=== PATIENT | female | born 1935 | race Caucasian/White ===

== ENCOUNTER 2016-10-31 14:22 | Emergency (ER) | payer OTHER ==
[~2016-10-31] VITALS: Ht 160 cm; Wt 70.0 kg
[~2016-10-31 14:22] MED LIST: CHOL1CAP6 PO; OMEGCAP21 PO; ZOCO40TA PO
[2016-10-31 14:45] VITALS: BP 126/61; PULSE 78; RESP 18; TEMP 100.1; O2SAT 94
--- NOTE | 2016-10-31 14:49 | PD ---
HPI Chief Complaint: Dizziness Time Seen by Provider: 14:49 Travel History International Travel<30 days: No Contact w/Intl Traveler<30days: No Traveled to known affect area: No History of Present Illness HPI 81-year-old female brought in by EMS from home with reports of confusion and fever. Patient has a history of dementia, but her neighbors and roommate felt that she was worse than usual. Patient denies any specific complaints of pain, fever, nausea, vomiting, cough, sore throat, headache, or other acute issue. Temperature is reported be 101 by EMS. She has no known drug allergies. PFSH Past Medical History Arthritis: Yes Cancer: Yes (RIGHT BREAST) Cardiovascular Problems: No High Cholesterol: Yes Chemotherapy: No Diabetes: Yes Diminished Hearing: No Gastrointestinal Disorders: Yes Genitourinary: No Implanted Vascular Access Dvce: Yes Musculoskeletal: Yes (POLIO AGE 14) Neurologic: No Respiratory: No Immunizations Current: Yes Radiation Therapy: No Thyroid Disease: Yes Past Surgical History Eye Surgery: Yes (CATARACT ON LEFT, LENS) Genitourinary Surgery: Yes (HYSTERECTOMY) Hysterectomy: Yes Other Surgery: Yes Social History Alcohol Use: Yes (SOCIALLY) Tobacco Use: No Substance Use: No Allergies-Medications (Allergen,Severity, Reaction): Coded Allergies: No Known Allergies (Verified , 12/16/15) Reported Meds & Prescriptions Reported Meds & Active Scripts Active Reported Zocor 40 mg (Simvastatin) 40 Mg Tab 1 Tab PO HS Hm [place]-3-6-9 Fatty Acid ([place]-3/[place]-6/[place]-9 Fatty Acids) Cap 1 Cap PO DAILY Vitamin D-3 (Cholecalciferol) 1,000 Unit Tab 2,000 Unit PO DAILY Review of Systems Except as stated in HPI: all other systems reviewed are Neg General / Constitutional: Positive: Fever, Chills Eyes: No: Visual changes HENT: No: Headaches, Vertigo, Lightheadedness, Sore Throat, Rhinitis, Rhinorrhea, Congestion, Nosebleed, Neck Stiffness, Neck Pain, Dental Difficulties, Earache Cardiovascular: No: Chest Pain or Discomfort Respiratory: No: Cough, Shortness of Breath, Wheezing Gastrointestinal: No: Nausea, Vomiting, Diarrhea, Abdominal Pain Genitourinary: No: Urgency, Frequency, Dysuria Musculoskeletal: No: Pain Skin: No Rash Neurologic: No: Weakness Psychiatric: No: Depression Endocrine: No: Polydipsia Hematologic/Lymphatic: No: Easy Bruising Physical Exam Narrative GENERAL: Patient appears comfortable and in no acute distress. She is examined in the ambulance [facility]. SKIN: Warm and dry. Normal color. Normal turgor. HEAD: Atraumatic. Normocephalic. EYES: Pupils equal and round. No scleral icterus. No injection or drainage. ENT: No nasal bleeding or discharge. Mucous membranes pink and moist. TMs are clear bilaterally. Pharynx is normal. Airway is patent. NECK: Trachea midline. No JVD. Neck is supple nontender. CARDIOVASCULAR: Regular rate and rhythm. No murmurs gallops or rubs. RESPIRATORY: No accessory muscle use. Clear to auscultation. Breath sounds equal bilaterally. GASTROINTESTINAL: Abdomen soft, non-tender, nondistended. Hepatic and splenic margins not palpable. MUSCULOSKELETAL: Extremities without clubbing, cyanosis, or edema. No obvious deformities. NEUROLOGICAL: Awake and alert. No obvious cranial nerve deficits. Motor grossly within normal limits. Five out of 5 muscle strength in the arms and legs. Normal speech. PSYCHIATRIC: Appropriate mood and affect; insight and judgment normal. Data Data Last Documented VS Vital Signs Date Time Temp Pulse Resp B/P Pulse Ox O2 Delivery O2 Flow Rate FiO2 10/31/16 14:45 100.1 78 18 126/61 94 Orders Electrocardiogram (10/31/16 14:49) Complete Blood Count With Diff (10/31/16 14:49) Comprehensive Metabolic Panel (10/31/16 14:49) Prothrombin Time / Inr (Pt) (10/31/16 14:49) Act Partial Throm Time (Ptt) (10/31/16 14:49) Lactic Acid Sepsis Protocol (10/31/16 14:49) Magnesium (Mg) (10/31/16 14:49) Lipase (10/31/16 14:49) Ckmb (Isoenzyme) Profile (10/31/16 14:49) Troponin I (10/31/16 14:49) Urinalysis - C+S If Indicated (10/31/16 14:49) Blood Culture (10/31/16 14:49) Chest, Single Ap (10/31/16 14:49) Ecg Monitoring (10/31/16 14:49) Iv Access Insert/Monitor (10/31/16 14:49) Cath For Specimen (10/31/16 14:49) Oximetry (10/31/16 14:49) Oxygen Administration (10/31/16 14:49) Acetaminophen (Tylenol) (10/31/16 15:00) Labs Laboratory Tests Test 10/31/16 10/31/16 14:50 15:00 White Blood Count 4.6 TH/MM3 Red Blood Count 4.60 MIL/MM3 Hemoglobin 14.1 GM/DL Hematocrit 41.6 % Mean Corpuscular Volume 90.5 FL Mean Corpuscular Hemoglobin 30.5 PG Mean Corpuscular Hemoglobin 33.8 % Concent Red Cell Distribution Width 14.6 % Platelet Count 202 TH/MM3 Mean Platelet Volume 8.7 FL Neutrophils (%) (Auto) 74.6 % Lymphocytes (%) (Auto) 11.3 % Monocytes (%) (Auto) 12.5 % Eosinophils (%) (Auto) 1.1 % Basophils (%) (Auto) 0.5 % Neutrophils # (Auto) 3.4 TH/MM3 Lymphocytes # (Auto) 0.5 TH/MM3 Monocytes # (Auto) 0.6 TH/MM3 Eosinophils # (Auto) 0.1 TH/MM3 Basophils # (Auto) 0.0 TH/MM3 CBC Comment DIFF FINAL Differential Comment Prothrombin Time 10.7 SEC Prothromb Time International 1.0 RATIO Ratio Activated Partial 25.4 SEC Thromboplast Time Lactic Acid Level 1.3 mmol/L Urine Color YELLOW Urine Turbidity CLEAR Urine pH 7.0 Urine Specific [place] 1.017 Urine Protein TRACE mg/dL Urine Glucose (UA) 300 mg/dL Urine Ketones TRACE mg/dL Urine Occult Blood NEG Urine Nitrite NEG Urine Bilirubin NEG Urine Urobilinogen LESS THAN 2.0 MG/DL Urine Leukocyte Esterase NEG Urine RBC 1 /hpf Urine WBC 2 /hpf Urine Squamous Epithelial 2 /hpf Cells Urine Renal Epithelial Cells <1 /hpf Microscopic Urinalysis Comment CATH-CULT NOT IND MDM Medical Decision Making Medical Screen Exam Complete: Yes Emergency Medical Condition: Yes Medical Record Reviewed: Yes Differential Diagnosis Febrile illness. Urosepsis. Bronchitis. Pneumonia. Narrative Course Patient is medically stable at time of exam. Labs ordered including CBC, CMP, lactic acid, and urinalysis. CBC is unremarkable. Lactic acid is normal at 1.4. Chest x-ray is unremarkable per radiologist. Urinalysis does not show signs of infection. Patient is given 650 mg Tylenol by mouth. Patient is felt stable although she does have a fever, her labs indicate no reason to admit her. Patient should be discharged home and continued on Tylenol as needed for fever and follow-up with her primary care physician the next several days. The patient should return to emergency Department with worsening symptoms as warranted. Diagnosis Primary Impression: Febrile illness, acute Referrals: Primary Care Physician 1 day Patient Instructions: General Instructions Additional Instructions: CBC is unremarkable. Lactic acid is normal at 1.4. Chest x-ray is unremarkable per radiologist. Urinalysis does not show signs of infection. Patient is given 650 mg Tylenol by mouth. Patient is felt stable although she does have a fever, her labs indicate no reason to admit her. Patient should be discharged home and continued on Tylenol as needed for fever and follow-up with her primary care physician the next several days. The patient should return to emergency Department with worsening symptoms as warranted. Med/Other Pt SpecificInfo: No Meds Exist/No RX given Disposition: DISCHARGE HOME Condition: Stable Pramod Fowler Oct 31, 2016 14:49
[2016-10-31] MEDS ORDERED: ACETAMINOPHEN 325 MG TAB PO ONE (15:00)
[2016-10-31 15:22] LABS: AUTOMATED NEUTROPHIL # 3.4 TH/MM3 (1.8-7.7); BASOPHIL % 0.5 % (0.0-2.0); EOSINOPHIL # 0.1 TH/MM3 (0-0.4); EOSINOPHIL % 1.1 % (0.0-4.0); HEMATOCRIT 41.6 % (35.0-46.0); HEMO FLAGS DIFF FINAL; LYMPH % 11.3 % (9.0-44.0); LYMPHOCYTE # 0.5 TH/MM3 (1.0-4.8); MEAN CELL VOLUME 90.5 FL (80.0-100.0); MEAN CORPUSCULAR HEMOGLOBIN 30.5 PG (27.0-34.0); MEAN CORPUSCULAR HGB CONC 33.8 % (32.0-36.0); MONO % 12.5 % (0.0-8.0); NEUT % 74.6 % (16.0-70.0); PLATELET COUNT 202 TH/MM3 (150-450); RED CELL DISTRIBUTION WIDTH 14.6 % (11.6-17.2); WHITE BLOOD COUNT 4.6 TH/MM3 (4.0-11.0)
[2016-10-31 15:29] LABS: APTT (PATIENT) 25.4 SEC (24.3-30.1); PROTHROMBIN TIME - PATIENT 10.7 SEC (9.8-11.6)
--- NOTE | 2016-10-31 15:38 | RADRPT ---
EXAM DATE/TIME: 10/31/2016 15:09 [facility] COMPARISON: CHEST SINGLE AP, August 24, 2014, 13:54. INDICATIONS : Fever, dizzy MEDICAL HISTORY : None. SURGICAL HISTORY : None. ENCOUNTER: Initial ACUITY: 1 day PAIN SCORE: 0/10 LOCATION: Bilateral chest FINDINGS: A single view of the chest demonstrates without evidence of significant consolidation. Lungs are hyperinflated. Heart and mediastinal structures are stable. CONCLUSION: COPD. Minimal streaky airspace disease left base which may represent atelectasis. No evidence of consolidating airspace disease. Hans Mitchell MD on October 31, 2016 at 15:35 Board Certified Radiologist. This report was verified electronically.
[2016-10-31 15:52] LABS: BLOOD, URINE NEG (NEG); COMMENT (UR) CATH-CULT NOT IND; CULTURE IF INDICATED CATH CULTURE NOT IND; GLUCOSE,URINE 300 mg/dL (NEG); KETONE, URINE TRACE mg/dL (NEG); NITRITE,URINE NEG (NEG); RENAL EPITHELIAL CELLS <1 /hpf; SQUAMOUS EPITHELIAL CELL URINE 2 /hpf (0-5); URINE COLOR YELLOW (YELLW/STRAW)
== END 2016-10-31 17:26 | disposition home or self-care (01) ==
LOC: NEDAMB 14:22
DX: R50.9 Fever, unspecified (principal); E11.9 Type 2 diabetes mellitus without complications
CPT/HCPCS: 71010; 81001; 83605; 85025; 85610; 85730; 87040; 99285

== ENCOUNTER 2017-05-26 14:50 | Emergency (ER) | payer OTHER ==
[~2017-05-26] VITALS: Ht 149.9 cm; Wt 55.0 kg
[2017-05-26 14:52] VITALS: BP 150/67; PULSE 92; RESP 14; TEMP 98.8; O2SAT 95
[2017-05-26 15:59] VITALS: BP 174/70; PULSE 81; RESP 18; O2SAT 97
--- NOTE | 2017-05-26 16:01 | PD ---
HPI Chief Complaint: GI Complaint Time Seen by Provider: 15:36 Travel History International Travel<30 days: No Contact w/Intl Traveler<30days: No Traveled to known affect area: No History of Present Illness HPI 81-year-old female presents to the emergency department for evaluation of finding a small amount of pink in her underwear and states that she had a episode of rectal bleeding. Patient states it was a very small amount in her underwear and she has not had any since. She had this episode this morning. She denies any history of the same. Patient is a poor historian. Her at bedside is as well a poor historian. Patient denies any headache. No fevers or chills. No chest pain or shortness of breath. She denies any bleeding since this. When asked if this could've been vaginal bleeding, she states she is sure it was rectal. Patient is unsure she is ever had a colonoscopy. She denies any abdominal pain. No nausea, vomiting, diarrhea, constipation. She states her last BM was yesterday was normal. She denies any weakness, dizziness, syncope. She states she feels fine at this time. Patient takes aspirin, but no anticoagulants. She has no other complaints at this time. Severity is mild. PFSH Past Medical History Arthritis: Yes Cancer: Yes (RIGHT BREAST) Cardiovascular Problems: No High Cholesterol: Yes Chemotherapy: No Diabetes: Yes Diminished Hearing: No Gastrointestinal Disorders: Yes Genitourinary: No Implanted Vascular Access Dvce: Yes Musculoskeletal: Yes (POLIO AGE 14) Neurologic: No Respiratory: No Immunizations Current: Yes Radiation Therapy: No Thyroid Disease: Yes Past Surgical History Eye Surgery: Yes (CATARACT ON LEFT, LENS) Genitourinary Surgery: Yes (HYSTERECTOMY) Hysterectomy: Yes Other Surgery: Yes Social History Alcohol Use: Yes (SOCIALLY) Tobacco Use: No Substance Use: No Allergies-Medications (Allergen,Severity, Reaction): Coded Allergies: No Known Allergies (Verified , 12/16/15) Reported Meds & Prescriptions Reported Meds & Active Scripts Active Reported Meclizine (Meclizine HCl) 25 Mg Tab 25 Mg PO DIRECTED PRN Aspirin EC (Aspirin) 81 Mg Tabdr 81 Mg PO DAILY Glipizide 5 Mg Tab 2.5 Mg PO BIDAC Take 30 minutes before a meal Amlodipine (Amlodipine Besylate) 2.5 Mg Tab 2.5 Mg PO BID Review of Systems Except as stated in HPI: all other systems reviewed are Neg Physical Exam Narrative GENERAL: Well-nourished, well-developed female patient, afebrile. SKIN: Focused skin assessment warm/dry. HEAD: Normocephalic. Atraumatic. EYES: No scleral icterus. No injection or drainage. NECK: Supple, trachea midline. No JVD or lymphadenopathy. CARDIOVASCULAR: Regular rate and rhythm without murmurs, gallops, or rubs. RESPIRATORY: Breath sounds equal bilaterally. No accessory muscle use. Lungs sounds are clear to auscultation. GASTROINTESTINAL: Abdomen soft, non-tender, nondistended. MUSCULOSKELETAL: No cyanosis, or edema. BACK: Nontender without obvious deformity. No CVA tenderness. RECTAL EXAM: No masses or tenderness. No stool within the rectal vault. Mucus obtained was negative for occult blood. This exam was done with MAIDA Fitzgerald, at bedside. Data Data Last Documented VS Vital Signs Date Time Temp Pulse Resp B/P (MAP) Pulse Ox O2 Delivery O2 Flow Rate FiO2 05/26/17 15:59 81 18 174/70 (104) 97 Room Air 05/26/17 14:52 98.8 Orders Orders Complete Blood Count With Diff (05/26/17 15:10) Comprehensive Metabolic Panel (05/26/17 15:10) Prothrombin Time / Inr (Pt) (05/26/17 15:10) Act Partial Throm Time (Ptt) (05/26/17 15:10) Urinalysis - C+S If Indicated (05/26/17 15:10) Type And Screen (05/26/17 15:10) Electrocardiogram (05/26/17 ) Urine Culture (05/26/17 16:15) Cephalexin (Keflex) (05/26/17 17:45) Labs Laboratory Tests Test 05/26/17 16:15 05/26/17 16:25 Urine Color YELLOW Urine Turbidity HAZY Urine pH 5.5 Urine Specific [place] 1.024 Urine Protein 30 mg/dL Urine Glucose (UA) 300 mg/dL Urine Ketones TRACE mg/dL Urine Occult Blood SMALL Urine Nitrite POS Urine Bilirubin NEG Urine Urobilinogen 2.0 MG/DL Urine Leukocyte Esterase LARGE Urine RBC 6 /hpf Urine WBC 101 /hpf Urine WBC Clumps OCC Urine Squamous Epithelial Cells 5 /hpf Urine Amorphous Sediment RARE Urine Bacteria MANY /hpf Urine Mucus MOD /lpf Microscopic Urinalysis Comment CULTURE INDICATED White Blood Count 9.1 TH/MM3 Red Blood Count 4.89 MIL/MM3 Hemoglobin 15.5 GM/DL Hematocrit 44.9 % Mean Corpuscular Volume 91.7 FL Mean Corpuscular Hemoglobin 31.7 PG Mean Corpuscular Hemoglobin Concent 34.6 % Red Cell Distribution Width 13.7 % Platelet Count 246 TH/MM3 Mean Platelet Volume 8.1 FL Neutrophils (%) (Auto) 75.3 % Lymphocytes (%) (Auto) 14.5 % Monocytes (%) (Auto) 9.0 % Eosinophils (%) (Auto) 0.7 % Basophils (%) (Auto) 0.5 % Neutrophils # (Auto) 6.8 TH/MM3 Lymphocytes # (Auto) 1.3 TH/MM3 Monocytes # (Auto) 0.8 TH/MM3 Eosinophils # (Auto) 0.1 TH/MM3 Basophils # (Auto) 0.0 TH/MM3 CBC Comment DIFF FINAL Differential Comment Prothrombin Time 10.5 SEC Prothromb Time International Ratio 1.0 RATIO Activated Partial Thromboplast Time 21.1 SEC Blood Urea Nitrogen 21 MG/DL Creatinine 1.03 MG/DL Random Glucose 152 MG/DL Total Protein 7.9 GM/DL Albumin 4.1 GM/DL Calcium Level 8.8 MG/DL Alkaline Phosphatase 74 U/L Aspartate Amino Transf (AST/SGOT) 20 U/L Alanine Aminotransferase (ALT/SGPT) 30 U/L Total Bilirubin 0.5 MG/DL Sodium Level 138 MEQ/L Potassium Level 3.7 MEQ/L Chloride Level 105 MEQ/L Carbon Dioxide Level 23.1 MEQ/L Anion Gap 10 MEQ/L Estimat Glomerular Filtration Rate 51 ML/MIN [facility] Medical Decision Making Medical Screen Exam Complete: Yes Emergency Medical Condition: Yes Medical Record Reviewed: Yes Differential Diagnosis Rectal bleeding versus vaginal bleeding versus anemia versus medical clearance Narrative Course 81-year-old female presents to the emergency department stating she had some pink in her underwear and is concerned she has rectal bleeding. She has had no further episodes. Rectal exam is negative. No evidence of vaginal bleeding on exam either. EKG, CBC, CMP, PTT, PT/INR, UA, type and screen are ordered and pending. EKG shows HR 82, LBBB, no acute ST changes. CBC shows HGB of 15.5/Hct of 44.9. CMP shows BUN 21/creatinine of 1.03, glucose 152. Coags show no acute abnormality. UA shows small occult blood, positive nitrate, large leukocyte esterase, 101 wbc's, occasional WBC clumps, many bacteria. There is no evidence of vaginal or rectal bleeding on physical exam. Patient does have significant UTI. Otherwise, labs are reassuring. Patient started on Keflex for UTI. She is instructed to follow with her primary care physician. She is to return here for any acute worsening of symptoms. The patient was discharged in stable condition with instructions, including return instructions and follow up instructions. [facility] Internal Pos. & Neg. Controls: Passed Fecal Specimen Occult Blood: Negative Diagnosis Primary Impression: Urinary tract infection Qualified Codes: N30.01 - Acute cystitis with hematuria Referrals: Primary Care Physician call for appointment Patient Instructions: General Instructions, Urinary Tract Infection in Women ( ED) Additional Instructions: Take antibiotic as directed until gone. Follow-up with your primary care physician. Return to the emergency department for any acute worsening of symptoms. Med/Other Pt SpecificInfo: Prescription(s) given Scripts Cephalexin (Keflex) 500 Mg Capsule 500 MG PO Q8H for Infection for 7 Days, #21 CAP 0 Refills Prov: Elsi Cuenca 05/26/17 Disposition: 01 DISCHARGE HOME Condition: Stable Elsi Cuenca May 26, 2017 16:01
[2017-05-26] MEDS ORDERED: AMLO2.5T PO (16:05)
[2017-05-26] MEDS ORDERED: MECL-62 PO (16:05)
[2017-05-26] MEDS ORDERED: GLIP5TAB8 PO (16:05)
[2017-05-26] MEDS ORDERED: ASPI81TA23 PO (16:05)
[2017-05-26 16:58] LABS: AUTOMATED NEUTROPHIL # 6.8 TH/MM3 (1.8-7.7); BASOPHIL % 0.5 % (0.0-2.0); EOSINOPHIL # 0.1 TH/MM3 (0-0.4); EOSINOPHIL % 0.7 % (0.0-4.0); HEMATOCRIT 44.9 % (35.0-46.0); HEMO FLAGS DIFF FINAL; LYMPH % 14.5 % (9.0-44.0); LYMPHOCYTE # 1.3 TH/MM3 (1.0-4.8); MEAN CELL VOLUME 91.7 FL (80.0-100.0); MEAN CORPUSCULAR HEMOGLOBIN 31.7 PG (27.0-34.0); MEAN CORPUSCULAR HGB CONC 34.6 % (32.0-36.0); NEUT % 75.3 % (16.0-70.0); PLATELET COUNT 246 TH/MM3 (150-450); RED BLOOD COUNT 4.89 MIL/MM3 (4.00-5.30); RED CELL DISTRIBUTION WIDTH 13.7 % (11.6-17.2); WHITE BLOOD COUNT 9.1 TH/MM3 (4.0-11.0)
[2017-05-26 17:07] LABS: ALT (GPT) 30 U/L (10-53); ANION GAP 10 MEQ/L (5-15); AST (GOT) 20 U/L (15-37); BICARBONATE 23.1 MEQ/L (21.0-32.0); BLOOD UREA NITROGEN 21 MG/DL (7-18); CHLORIDE 105 MEQ/L (98-107); GLOMERULAR FILTRATION RATE 51 ML/MIN (>89); POTASSIUM 3.7 MEQ/L (3.5-5.1); SODIUM (NA) 138 MEQ/L (136-145)
[2017-05-26 17:09] LABS: BACTERIA, URINE MANY /hpf; BLOOD, URINE SMALL (NEG); COMMENT (UR) CULTURE INDICATED; CULTURE IF INDICATED CULTURE INDICATED; GLUCOSE,URINE 300 mg/dL (NEG); KETONE, URINE TRACE mg/dL (NEG); MUCUS URINE MOD /lpf (OCC); NITRITE,URINE POS (NEG); PH, URINE 5.5 (5.0-8.5); SQUAMOUS EPITHELIAL CELL URINE 5 /hpf (0-5); URINE COLOR YELLOW (YELLW/STRAW)
[2017-05-26 17:09] LABS: ALKALINE PHOSPHATASE 74 U/L (45-117); TOTAL BILIRUBIN ADULT 0.5 MG/DL (0.2-1.0)
[2017-05-26 17:10] LABS: APTT (PATIENT) 21.1 SEC (24.3-30.1); PROTHROMBIN TIME - PATIENT 10.5 SEC (9.8-11.6)
[2017-05-26] MEDS ORDERED: CEPHALEXIN MONOHYDRATE 500 MG CAP PO ONE (17:45)
[2017-05-26] MEDS ORDERED: CEPH-460 PO (17:47)
--- NOTE | 2017-05-27 14:25 | EKG ---
Date Performed: 05/26/2017 Time Performed: 15:14:52 PTAGE: 81 years EKG: Sinus rhythm MARKED LEFT AXIS DEVIATION LEFT BUNDLE BRANCH BLOCK ABNORMAL ECG PREVIOUS TRACING : 12/16/2015 11.27 Compared to prior tracing no significant change DOCTOR: Olivier Saldana Interpretating Date/Time 05/27/2017 14:19:16
== END 2017-05-26 18:15 | disposition home or self-care (01) ==
LOC: NEPC 14:50
DX: N30.01 Acute cystitis with hematuria (principal); K62.5 Hemorrhage of anus and rectum; B96.1 Klebsiella pneumoniae [K. pneumoniae] as the cause of diseases classified elsewhere; R94.31 Abnormal electrocardiogram [ECG] [EKG]; E11.9 Type 2 diabetes mellitus without complications; E07.9 Disorder of thyroid, unspecified; E78.00 Pure hypercholesterolemia, unspecified; Z79.84 Long term (current) use of oral hypoglycemic drugs; Z79.82 Long term (current) use of aspirin; Z87.39 Personal history of other diseases of the musculoskeletal system and connective tissue; Z85.3 Personal history of malignant neoplasm of breast; Z87.19 Personal history of other diseases of the digestive system
CPT/HCPCS: 80053; 81001; 85025; 85610; 85730; 86850; 86900; 86901; 87077; 87086; 87186; 93005; 99284

== ENCOUNTER 2017-10-06 15:02 | Observation (INO) | payer OTHER ==
[~2017-10-06 15:02] MED LIST changes: +AMLO2.5T PO; +ASPI81TA23 PO; +CEPH-460 PO; -CHOL1CAP6 PO; +GLIP5TAB8 PO; +MECL-62 PO; -OMEGCAP21 PO; -ZOCO40TA PO
[2017-10-06 15:13] VITALS: BP 184/90; PULSE 87; RESP 16; TEMP 97.6; O2SAT 97
[2017-10-06 16:34] LABS: ALT (GPT) 28 U/L (10-53)
[2017-10-06 16:36] LABS: ALKALINE PHOSPHATASE 68 U/L (45-117); TOTAL BILIRUBIN ADULT 0.4 MG/DL (0.2-1.0); TOTAL PROTEIN 8.3 GM/DL (6.4-8.2)
[2017-10-06 16:37] LABS: ALBUMIN 4.4 GM/DL (3.4-5.0); AST (GOT) 25 U/L (15-37); BICARBONATE 27.4 MEQ/L (21.0-32.0); BLOOD UREA NITROGEN 17 MG/DL (7-18); CHLORIDE 107 MEQ/L (98-107); CREATININE 0.96 MG/DL (0.50-1.00); GLOMERULAR FILTRATION RATE 56 ML/MIN (>89); GLUCOSE,RANDOM 119 MG/DL (74-106); SODIUM (NA) 141 MEQ/L (136-145)
--- NOTE | 2017-10-06 16:45 | RADRPT ---
EXAM DATE/TIME: 10/06/2017 16:36 [facility] COMPARISON: No previous studies available for comparison. INDICATIONS : Weakness. RADIATION DOSE: 39.81 CTDIvol (mGy) ; Tabletop CT Head MEDICAL HISTORY : Diabetes mellitus type 2. SURGICAL HISTORY : None. ENCOUNTER: Initial ACUITY: 1 day PAIN SCALE: 0/10 LOCATION: cranial TECHNIQUE: Multiple contiguous axial images were obtained of the head. Using automated exposure control and adj ustment of the mA and/or kV according to patient size, radiation dose was kept as low as reasonably a chievable to obtain optimal diagnostic quality images. DICOM format image data is available electro nically for review and comparison. FINDINGS: CEREBRUM: The ventricles are normal for age with moderate atrophic change. No evidence of midline shift, mass l esion, hemorrhage or acute infarction. No extra-axial fluid collections are seen. POSTERIOR FOSSA: The cerebellum and brainstem are intact. The 4th ventricle is midline. The cerebellopontine angle i s unremarkable. EXTRACRANIAL: The visualized portion of the orbits is intact. SKULL: The calvaria is intact. No evidence of skull fracture. CONCLUSION: Moderate atrophic change with no evidence of hemorrhage or infarction. Simon Dinero MD on October 06, 2017 at 16:41 Board Certified Radiologist. This report was verified electronically.
--- NOTE | 2017-10-06 17:10 | RADRPT ---
EXAM DATE/TIME: 10/06/2017 16:39 [facility] COMPARISON: No previous studies available for comparison. INDICATIONS : Radiculopathy. Left lower extremity numbness since yesterday. RADIATION DOSE: 33.37 CTDIvol (mGy) MEDICAL HISTORY : Diabetes mellitus type 2. SURGICAL HISTORY : None. ENCOUNTER: Initial ACUITY: 1 day PAIN SCALE: 3/10 LOCATION: Lumbar spine. TECHNIQUE: Volumetric scanning of the lumbar spine was performed. Multiplanar reconstructions in the sagittal, coronal and oblique axial planes were performed. Using automated exposure control and adjustment of the mA and/or kV according to patient size, radiation dose was kept as low as reasonably achievable t o obtain optimal diagnostic quality images. DICOM format image data is available electronically for review and comparison. FINDINGS: VERTEBRAE: Normal vertebral body height. ALIGNMENT: There is a minimal grade 1 anterior spondylolisthesis of L4 on L5 several millimeters. Discs: There is mild disc space narrowing at the L3-4 level. T12-L1: The thecal sac has a normal diameter. No evidence of disc bulge or protrusion. The neural foramina are patent bilaterally. There is a benign-appearing cystic structure in the left kidney. L1-L2: The thecal sac has a normal diameter. There is mild annular disc bulge. The neural foramina are paten t bilaterally. L2-L3: The thecal sac has a normal diameter. There is mild annular disc bulge. The neural foramina are paten t bilaterally. L3-L4: There is a mild to moderate disc bulge with mild flattening of the anterior thecal sac and mild narro wing of the neural foramina. Degenerative changes are noted involving the facet joints with hypertrop hy of the ligamentum flavum and mild to moderate central canal stenosis. L4-L5: Moderate disc bulge with mild flattening of the anterior thecal sac and mild narrowing of the neural foramina. Degenerative changes are noted involving the facet joints with hypertrophy of the ligamentu m flavum. There is mild lateral recess stenosis and moderate central canal stenosis. L5-S1: The thecal sac has a normal diameter. There is a mild disc bulge. The neural foramina are patent bila terally. CONCLUSION: 1. Moderate central canal stenosis and lateral recess stenosis at L4-5 secondary to disc bulge and de generative change involving the facets. 2. Mild to moderate central canal stenosis at L3-4 secondary to disc bulge and degenerative change in volving the facets. 3. Mild disc bulges at the L1-2, L2-3 and L5-S1 levels. 4. Mild grade 1 anterior spondylolisthesis of L4 on L5 several millimeters. Simon Dinero MD on October 06, 2017 at 17:03 Board Certified Radiologist. This report was verified electronically.
--- NOTE | 2017-10-06 17:58 | PD ---
HPI Chief Complaint: Numbness/Tingling Time Seen by Provider: 17:34 Travel History International Travel<30 days: No Contact w/Intl Traveler<30days: No Traveled to known affect area: No History of Present Illness HPI The patient is 82 years old and complains of left lower extremity pain and numbness. She reports inability to elevate the leg and to walk. The pain is most severe in the region of the posterior thigh. She also has pain in the left knee. She denies fall. There has been no excessive use or injury due to exercise. Timing constant. Patient states the pain is severe. PFSH Past Medical History Diabetes: Yes Social History Tobacco Use: No Allergies-Medications (Allergen,Severity, Reaction): Coded Allergies: No Known Allergies (Unverified , 10/06/17) Review of Systems Except as stated in HPI: all other systems reviewed are Neg General / Constitutional: No: Fever Physical Exam Narrative GENERAL: 82-year-old female pleasant well-nourished well-developed Vital Signs Date Time Temp Pulse Resp B/P (MAP) Pulse Ox O2 Delivery O2 Flow Rate FiO2 10/06/17 20:00 98.0 88 20 165/60 (95) 98 Room Air 10/06/17 18:01 97 Room Air 10/06/17 15:13 97.6 87 16 184/90 (121) 97 SKIN: Warm and dry. HEAD: Atraumatic. Normocephalic. EYES: Pupils equal and round. No scleral icterus. No injection or drainage. ENT: No nasal bleeding or discharge. Mucous membranes pink and moist. NECK: Trachea midline. No JVD. CARDIOVASCULAR: Regular rate and rhythm. RESPIRATORY: No accessory muscle use. Clear to auscultation. Breath sounds equal bilaterally. GASTROINTESTINAL: Abdomen soft, non-tender, nondistended. Hepatic and splenic margins not palpable. MUSCULOSKELETAL: Tenderness about some varicosities of the left thigh. There is no induration, erythema or tenderness about the left lower extremity to suggest DVT. 2+ dorsalis pedis bilaterally. Patient has difficulty elevating the left leg at the hip. NEUROLOGICAL: Awake and alert. No obvious cranial nerve deficits. Motor grossly within normal limits. Five out of 5 muscle strength in the arms and legs. Normal speech. PSYCHIATRIC: Appropriate mood and affect; insight and judgment normal. Data Data Last Documented VS Vital Signs Date Time Temp Pulse Resp B/P (MAP) Pulse Ox O2 Delivery O2 Flow Rate FiO2 10/06/17 20:00 98.0 88 20 165/60 (95) 98 Room Air Orders Orders Ct Lumb Spine W/O Contrast (10/06/17 ) Ct Brain W/O Iv Contrast(Rout) (10/06/17 ) Complete Blood Count With Diff (10/06/17 15:16) Comprehensive Metabolic Panel (10/06/17 15:16) Coag Profile (10/06/17 15:16) Us Leg Venous Doppler Bilat (10/06/17 ) Acetamin-Hydrocod 325-5 Mg ([place] 5-325 (10/06/17 19:30) Mri L Spine W/O Contrast (10/06/17 ) Admit Order (Ed Use Only) (10/06/17 ) Vital Signs (Adult) Q4H (10/06/17 20:31) Diet Npo (10/07/17 Breakfast) Activity Bed Rest (10/06/17 20:31) Activity Oob With Assistance (10/06/17 20:31) Labs Laboratory Tests Test 10/06/17 15:44 Blood Urea Nitrogen 17 MG/DL Creatinine 0.96 MG/DL Random Glucose 119 MG/DL Total Protein 8.3 GM/DL Albumin 4.4 GM/DL Calcium Level 9.0 MG/DL Alkaline Phosphatase 68 U/L Aspartate Amino Transf (AST/SGOT) 25 U/L Alanine Aminotransferase (ALT/SGPT) 28 U/L Total Bilirubin 0.4 MG/DL Sodium Level 141 MEQ/L Potassium Level 4.3 MEQ/L Chloride Level 107 MEQ/L Carbon Dioxide Level 27.4 MEQ/L Anion Gap 7 MEQ/L Estimat Glomerular Filtration Rate 56 ML/MIN [facility] Medical Decision Making Medical Screen Exam Complete: Yes Emergency Medical Condition: Yes Medical Record Reviewed: Yes Differential Diagnosis Cord compression, spinal stenosis, DVT, superficial thrombophlebitis Narrative Course CBC & BMP Diagram 10/06/17 15:44 Total Protein 8.3 H, Albumin 4.4, Calcium Level 9.0, Alkaline Phosphatase 68, Aspartate Amino Transf (AST/SGOT) 25, Alanine Aminotransferase (ALT/SGPT) 28, Total Bilirubin 0.[address] is normal Lower extremity ultrasounds normal Lumbar spine CT reveals degenerative change Patient is an unable to ambulate. MRI ordered however patient was unable to tolerate due to anxiety. MR changed to AM. She had received Ativan beforehand. Diagnosis Primary Impression: Left leg weakness Additional Impression: Inability to ambulate due to multiple joints Admitting Information Admitting Physician Requests: Observation Abdirahman Damian MD Oct 06, 2017 17:58
[2017-10-06] MEDS ORDERED: ACETAMINOPHEN/HYDROcodone 325 MG/5 MG TAB PO ONE (19:30)
[2017-10-06 20:00] VITALS: BP 165/60; PULSE 88; RESP 20; TEMP 98; O2SAT 98
--- NOTE | 2017-10-06 20:06 | RADRPT ---
EXAM DATE/TIME: 10/06/2017 18:44 [facility] COMPARISON: No previous studies available for comparison. INDICATIONS : Bilateral leg pain. MEDICAL HISTORY : Diabetes. Polio. SURGICAL HISTORY : None. ENCOUNTER: Initial ACUITY: 1 day PAIN SCORE: 6/10 LOCATION: Bilateral legs. TECHNIQUE: Venous ultrasound of the left and right leg was performed from the inguinal ligament to the proximal calf. Real-time, color Doppler and spectral tracing, compression and augmentation techniques were us ed. FINDINGS: RIGHT LEG: There is normal compressibility of the deep venous system from the inguinal region to the proximal ca lf. No echogenic clot is seen in the lumen of the common femoral, femoral, popliteal, and posterior tibial veins. There is a normal response of the venous system to proximal and distal augmentation an d respiration. LEFT LEG: There is normal compressibility of the deep venous system from the inguinal region to the proximal ca lf. No echogenic clot is seen in the lumen of the common femoral, femoral, popliteal, and posterior tibial veins. There is a normal response of the venous system to proximal and distal augmentation an d respiration. CONCLUSION: 1. Negative for deep venous thrombosis. Reno Burrows MD on October 06, 2017 at 20:02 Board Certified Radiologist. This report was verified electronically.
[2017-10-06] MEDS ORDERED: LORazepam 0.5 MG TAB PO ONE (21:00)
[2017-10-06 21:07] VITALS: RESP 20
[2017-10-06] MEDS ORDERED: NALOXONE HCL 0.4 MG/ML AMP IV PUSH PRN (21:15)
[2017-10-06] MEDS ORDERED: GLUCAGON 1 MG/ML VIAL OTHER PRN (21:15)
[2017-10-06] MEDS ORDERED: PROCHLORPERAZINE 25 MG SUPP RECTAL PRN (21:15)
[2017-10-06] MEDS ORDERED: ACETAMINOPHEN 325 MG TAB PO PRN (21:15)
[2017-10-06] MEDS ORDERED: DEXTROSE 50% IN WATER 50 ML VIAL(D50) IV PUSH PRN (21:15)
[2017-10-06] MEDS ORDERED: SODIUM CHLORIDE 0.9% FLUSH 10 ML FLUSH IV FLUSH PRN (21:15)
[2017-10-06] MEDS ORDERED: HEPARIN SODIUM - SQ 10,000 UNITS/ML VIAL SQ SCH (23:59)
[2017-10-07] VITALS (7 sets, daily range): BP systolic 153–193; BP diastolic 12–95; PULSE 62–90; RESP 16–18; TEMP 97.5–98.7; O2SAT 94–98
--- NOTE | 2017-10-07 00:21 | PD.CONS ---
History of Present Illness Service Neurosurgery Consult Requested By Emergency room-Dr. Damian Reason for Consult Severe back and lower extremity pain-inability to ambulate Primary Care Physician Jonah Regalado MD Diagnoses: History of Present Illness 82-year-old female presented to the emergency room 10/06/17 with progressive severe low back pain radiating to the left lower extremity. Not able to ambulate well. Denies recent fall. No bowel or bladder dysfunction. Review of Systems Constitutional: DENIES: Fever Respiratory: DENIES: Shortness of breath Cardiovascular: DENIES: Chest pain Gastrointestinal: DENIES: Abdominal pain Musculoskeletal: COMPLAINS OF: Muscle aches, Back pain Neurologic: COMPLAINS OF: Abnormal gait Past Family Social History Allergies: Coded Allergies: No Known Allergies (Unverified , 10/06/17) Past Medical History History significant cardiac, pulmonary gastrointestinal disease, hypertension, diabetes Past Surgical History No major surgeries reported Physical Exam Vital Signs Vital Signs Date Time Temp Pulse Resp B/P (MAP) Pulse Ox O2 Delivery O2 Flow Rate FiO2 10/06/17 22:42 20 10/06/17 21:07 20 10/06/17 20:00 98.0 88 20 165/60 (95) 98 Room Air 10/06/17 18:01 97 Room Air 10/06/17 15:13 97.6 87 16 184/90 (121) 97 Physical Exam GENERAL: This is a well-nourished, well-developed patient, in no apparent distress. SKIN: No rashes, ecchymoses or lesions. Cool and dry. HEAD: Atraumatic. Normocephalic. No temporal or scalp tenderness. EYES: Pupils equal round and reactive. Extraocular motions intact. No scleral icterus. No injection or drainage. ENT: Nose without bleeding, purulent drainage or septal hematoma. Throat without erythema, tonsillar hypertrophy or exudate. Uvula midline. Airway patent. NECK: Trachea midline. No JVD or lymphadenopathy. Supple, nontender, no meningeal signs. CARDIOVASCULAR: Regular rate and rhythm without murmurs, gallops, or rubs. RESPIRATORY: Clear to auscultation. Breath sounds equal bilaterally. No wheezes , rales, or rhonchi. GASTROINTESTINAL: Abdomen soft, non-tender, nondistended. No hepato-splenomegaly , or palpable masses. No guarding. MUSCULOSKELETAL: Positive discomfort along the left hip and lateral gluteal region with active and passive range of motion. NEUROLOGICAL: Awake and alert. Cranial nerves II through XII intact. Motor and sensory grossly within normal limits. Five out of 5 muscle strength in all muscle groups. Normal speech. Laboratory Laboratory Tests Test 10/06/17 15:44 Blood Urea Nitrogen 17 Creatinine 0.96 Random Glucose 119 Total Protein 8.3 Albumin 4.4 Calcium Level 9.0 Alkaline Phosphatase 68 Aspartate Amino Transf (AST/SGOT) 25 Alanine Aminotransferase (ALT/SGPT) 28 Total Bilirubin 0.4 Sodium Level 141 Potassium Level 4.3 Chloride Level 107 Carbon Dioxide Level 27.4 Anion Gap 7 Estimat Glomerular Filtration Rate 56 Result Diagram: 10/06/17 1544 Assessment and Plan Assessment and Plan Impression: 1. Lumbar stenosis. Question of left L4 [address] disc [address] on initial CT scan. Recommendations: Discussed with emergency room physician MRI lumbar spine pending Earle Hardin MD Oct 07, 2017 00:21
[2017-10-07] MEDS ORDERED: GLUCAGON 1 MG/ML VIAL OTHER PRN (01:00)
[2017-10-07] MEDS ORDERED: DEXTROSE 50% IN WATER 50 ML VIAL(D50) IV PUSH PRN (01:00)
--- NOTE | 2017-10-07 01:01 | HHI.HP ---
[facility] Service [facility] Primary Care Physician Jonah Regalado MD Admission Diagnosis LLE Weakness/Numbness; Inability to Ambulate Diagnoses: Travel History International Travel<30 Days: No Contact w/Intl Traveler <30 Da: No Traveled to Known Affected Are: No History of Present Illness 82-year-old female with past medical history significant for diabetes mellitus, hyperlipidemia and a history of breast cancer presents to the emergency department for evaluation of left lower extremity pain and weakness. The patient reports that the back of her knee is exquisitely painful. She states that it began this morning when she was unable to bear weight. She reports the weakness has been increasing but she is also growing "more tired this evening." The patient is an extremely poor historian. She denies any chest pain or shortness of breath. No nausea/vomiting/diarrhea. No abdominal pain. No dysuria. No loss of bowel/bladder. Review of Systems Except as stated in HPI: all other systems reviewed are Neg Past Family Social History Past Medical History Diabetes mellitus hyperlipidemia History of breast cancer Past Surgical History Hysterectomy Appendectomy Lumpectomy Reported Medications Patient does not know Allergies: Coded Allergies: No Known Allergies (Unverified , 10/06/17) Family History Negative for CAD/DM Social History Negative for alcohol, tobacco and illicit drugs Physical Exam Vital Signs Vital Signs Date Time Temp Pulse Resp B/P (MAP) Pulse Ox O2 Delivery O2 Flow Rate FiO2 10/06/17 22:42 20 10/06/17 21:07 20 10/06/17 20:00 98.0 88 20 165/60 (95) 98 Room Air 10/06/17 18:01 97 Room Air 10/06/17 15:13 97.6 87 16 184/90 (121) 97 Physical Exam GENERAL: female lying in bed SKIN: No rashes, ecchymoses or lesions. Cool and dry. HEAD: Atraumatic. Normocephalic. No temporal or scalp tenderness. EYES: Pupils equal round and reactive. Extraocular motions intact. No scleral icterus. No injection or drainage. ENT: Nose without bleeding, purulent drainage or septal hematoma. Throat without erythema, tonsillar hypertrophy or exudate. Uvula midline. Airway patent. NECK: Trachea midline. No JVD or lymphadenopathy. Supple, nontender, no meningeal signs. CARDIOVASCULAR: Regular rate and rhythm without murmurs, gallops, or rubs. RESPIRATORY: Clear to auscultation. Breath sounds equal bilaterally. No wheezes , rales, or rhonchi. GASTROINTESTINAL: Abdomen soft, non-tender, nondistended. No hepato-splenomegaly , or palpable masses. No guarding. MUSCULOSKELETAL: Tender to palpation behind the left knee. No edema. NEUROLOGICAL: Awake and alert. Cranial nerves II through XII intact. Unable to assess strength of the left lower extremity as patient refuses to attempt to move her leg because she states she is "too tired." Laboratory Laboratory Tests Test 10/06/17 15:44 Blood Urea Nitrogen 17 Creatinine 0.96 Random Glucose 119 Total Protein 8.3 Albumin 4.4 Calcium Level 9.0 Alkaline Phosphatase 68 Aspartate Amino Transf (AST/SGOT) 25 Alanine Aminotransferase (ALT/SGPT) 28 Total Bilirubin 0.4 Sodium Level 141 Potassium Level 4.3 Chloride Level 107 Carbon Dioxide Level 27.4 Anion Gap 7 Estimat Glomerular Filtration Rate 56 Result Diagram: 10/06/17 1544 Caprini VTE Risk Assessment Caprini VTE Risk Assessment: Mod/High Risk (score >= 2) Caprini Risk Assessment Model Point Value = 1 Point Value = 2 Point Value = 3 Point Value = 5 Age 41-60 Minor surgery BMI > 25 kg/m2 Swollen legs Varicose veins or History of unexplained or recurrent spontaneous Oral contraceptives or hormone replacement Sepsis (< 1 month) Serious lung disease, including pneumonia (< 1 month) Abnormal pulmonary function Acute myocardial infarction Congestive heart failure (< 1 month) History of inflammatory bowel disease Medical patient at bed rest Age 61-74 Arthroscopic surgery Major open surgery (> 45 min) Laparoscopic surgery (> 45 min) Malignancy Confined to bed (> 72 hours) Immobilizing plaster cast Central venous access Age >= 75 History of VTE Family history of VTE Factor V Leiden Prothrombin [id number] Lupus anticoagulant Anticardiolipin antibodies Elevated serum homocysteine Heparin-induced thrombocytopenia Other congenital or acquired thrombophilia Stroke (< 1 month) Elective arthroplasty Hip, pelvis, or leg fracture Acute spinal cord injury (< 1 month) Prophylaxis Regimen Total Risk Factor Score Risk Level Prophylaxis Regimen 0-1 Low Early ambulation 2 Moderate Order ONE of the following: *Sequential Compression Device (SCD) *Heparin 5000 units SQ BID 3-4 Higher Order ONE of the following medications: *Heparin 5000 units SQ TID *Enoxaparin/Lovenox 40 mg SQ daily (WT < 150 kg, CrCl > 30 mL/min) *Enoxaparin/Lovenox 30 mg SQ daily (WT < 150 kg, CrCl > 10-29 mL/min) *Enoxaparin/Lovenox 30 mg SQ BID (WT < 150 kg, CrCl > 30 mL/min) AND/OR *Sequential Compression Device (SCD) 5 or more Highest Order ONE of the following medications: *Heparin 5000 units SQ TID (Preferred with Epidurals) *Enoxaparin/Lovenox 40 mg SQ daily (WT < 150 kg, CrCl > 30 mL/min) *Enoxaparin/Lovenox 30 mg SQ daily (WT < 150 kg, CrCl > 10-29 mL/min) *Enoxaparin/Lovenox 30 mg SQ BID (WT < 150 kg, CrCl > 30 mL/min) AND *Sequential Compression Device (SCD) Assessment and Plan Assessment and Plan Assessment/plan: 1. Left lower extremity pain/weakness Neurology consulted, appreciate recommendations Ultrasound negative for DVT Lumbar spine CT shows moderate central canal stenosis at L4/5 secondary to disc bulge and degenerative change, mild to moderate stenosis at L3/4 MRI pending 2. Diabetes mellitus Patient cannot remember her home regimen Sliding scale insulin Monitor blood glucose 3. Hyperlipidemia Continue home medications once determined FEN: Nothing by mouth Electrolytes: Monitor and replete when necessary NS at 75 cc/hr Holding pharmacologic anticoagulation until stenosis assessed by neurology Christina Reis MD Oct 07, 2017 01:01
[2017-10-07] MEDS: SODIUM CHLOR 0.9% 1000 ML INJ 1,000 ML IV SCH ×2 (01:49→14:23)
[2017-10-07 06:21] LABS: AUTOMATED NEUTROPHIL # 3.6 TH/MM3 (1.8-7.7); BASOPHIL # 0.1 TH/MM3 (0-0.2); BASOPHIL % 1.1 % (0.0-2.0); EOSINOPHIL # 0.2 TH/MM3 (0-0.4); EOSINOPHIL % 2.6 % (0.0-4.0); HEMATOCRIT 40.7 % (35.0-46.0); HEMOGLOBIN 14.5 GM/DL (11.6-15.3); LYMPH % 24.4 % (9.0-44.0); LYMPHOCYTE # 1.4 TH/MM3 (1.0-4.8); MEAN CELL VOLUME 89.9 FL (80.0-100.0); MEAN CORPUSCULAR HGB CONC 35.6 % (32.0-36.0); MEAN PLATELET VOLUME 7.6 FL (7.0-11.0); MONO % 9.7 % (0.0-8.0); MONOCYTE # 0.6 TH/MM3 (0-0.9); NEUT % 62.2 % (16.0-70.0); PLATELET COUNT 207 TH/MM3 (150-450); RED BLOOD COUNT 4.53 MIL/MM3 (4.00-5.30); RED CELL DISTRIBUTION WIDTH 13.6 % (11.6-17.2); WHITE BLOOD COUNT 5.8 TH/MM3 (4.0-11.0)
[2017-10-07 06:50] LABS: BICARBONATE 29.8 MEQ/L (21.0-32.0); CALCIUM 8.3 MG/DL (8.5-10.1); CREATININE 0.82 MG/DL (0.50-1.00)
[2017-10-07] MEDS: INSULIN ASPART SUPPLEMENTAL SCALE SQ SCH ×4 (08:00→21:00)
[2017-10-07] MEDS: SODIUM CHLORIDE 0.9% FLUSH 10 ML FLUSH IV FLUSH SCH ×2 (08:24→21:00)
--- NOTE | 2017-10-07 08:46 | PD.CONS ---
History of Present Illness Service Neurology Consult Requested By Medicine Reason for Consult LLE weakness Primary Care Physician Jonah Regalado MD History of Present Illness History of Present Illness 82-year-old female admitted to the hospital for left lower extremity pain and weakness. The patient has relatively poor historian, therefore chart was reviewed as well. In interviewing the patient she states that she was brought in, and is not sure that she needs to stay here in the hospital. She does have pain and limited strength in the left lower extremity due to her pain. The patient tells me that she had polio at age 14, and has had intermittent episodes throughout her life of pain and weakness in the left lower extremity specifically. She cannot recall any recent injuries to the spine, though she does have some mild low back pain. She denies any saddle anesthesia, or any changes to bowel or bladder habits. The patient denies any other extremity involvement, upper or lower. She denies any visual disturbances or headache. Review of Systems Except as stated in HPI: all other systems reviewed are Neg Past Family Social History Past Medical History Polio, with possible post polio syndrome Diabetes mellitus hyperlipidemia History of breast cancer Past Surgical History Hysterectomy Appendectomy Lumpectomy Reported Medications Patient cannot recall her medications Allergies: Coded Allergies: No Known Allergies (Unverified , 10/06/17) Family History Noncontributory Social History Negative for alcohol, tobacco and illicit drugs (Mateusz Richter) Review of Systems Constitutional: Negative except HPI Eye: Negative Except HPI ENMT: Negative except HPI Respiratory: Negative except HPI Cardiovascular: Negative except HPI Gastrointestinal: Negative except HPI Gianni/Lymph: Negative except HPI Musculoskeletal: Negative except HPI Neurologic: Negative except HPI Psychiatric: Negative except HPI All other ROS: ROS reviewed as documented in chart (Mateusz Richter) Past Family Social History Allergies: Coded Allergies: No Known Allergies (Unverified , 10/06/17) Active Ordered Medications Current Medications Medications (Trade) Dose Ordered Sig/Kandi Route Start Time Stop Time Status Last Admin (NS Flush) 2 ml UNSCH PRN IV FLUSH 10/06/17 21:15 (NS Flush) 2 ml BID IV FLUSH 10/07/17 09:00 (Tylenol) 650 mg Q4H PRN PO 10/06/17 21:15 (Compazine Supp) 25 mg Q12H PRN RECTAL 10/06/17 21:15 (Heparin Inj) 5,000 units Q8H SQ 10/06/17 23:59 Future Hold (Narcan Inj) 0.4 mg UNSCH PRN IV PUSH 10/06/17 21:15 (D50w (Vial) Inj) 50 ml UNSCH PRN IV PUSH 10/07/17 01:00 (Glucagon Inj) 1 mg UNSCH PRN OTHER 10/07/17 01:00 (NovoLOG SUPPLEMENTAL SCALE) 1 ACHS SLIDING SCALE SQ 10/07/17 08:00 Sodium Chloride 1,000 ml @ 75 mls/hr [id number] IV 10/07/17 01:00 10/07/17 01:49 (Mateusz Richter) Exam I&O / VS Vital Signs Date Time Temp Pulse Resp B/P (MAP) Pulse Ox O2 Delivery O2 Flow Rate FiO2 10/07/17 07:09 97.9 66 16 160/72 (101) 95 10/07/17 04:18 97.5 62 16 157/12 (60) 94 10/07/17 02:12 98.1 68 16 153/74 (100) 95 10/06/17 22:42 20 10/06/17 21:07 20 10/06/17 20:00 98.0 88 20 165/60 (95) 98 Room Air 10/06/17 18:01 97 Room Air 10/06/17 15:13 97.6 87 16 184/90 (121) 97 General: No acute distress Eye: PERRL, EOMI Respiratory: Lungs CTA, Non-labored respirations, Symmetrical expansion Cardiology: Normal rate, Normal peripheral perfusion Musculoskeletal: Tenderness (Left knee) Neurologic: Alert, CN II-XII intact, Normal DTR's Psychiatric: Cooperative, Appropriate mood & affect Exam Comments Alert, oriented to person time and situation, not to place. MSR essentially normal however she had a delayed exaggerated response to kj bilaterally( complained of pain). 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 Has had intermittent exacerbations left lower extremity pain and weakness throughout her life. PT evaluation and treat (2) Left leg pain ICD Codes: M79.605 - Pain in left leg Plan: Possibly secondary to postpolio syndrome, however may require further imaging of the knee. Doppler unremarkable for evidence of DVT (3) Spondylosis of lumbar spine ICD Codes: M47.816 - Spondylosis without myelopathy or radiculopathy, lumbar region Plan: Neurosurgery following CT of the lumbar spine with noted moderate central canal stenosis L4-L5 and mild to moderate central canal stenosis L3-L4 Follow-up on imaging, follow exam, no hyperreflexia noted at this time. (Mateusz Richter) Diagnosis/Plan: (1) Left leg pain ICD Codes: M79.605 - Pain in left leg Plan: Possibly secondary to postpolio syndrome, however may require further imaging of the knee. Doppler unremarkable for evidence of DVT seen and examined. agree with PA. appears to be 2/2 left knee pain/swelling. ++ pain with knee mild rom and palpation. get xrays and ortho eval (Pierre Richmond MD) Mateusz Richter Oct 07, 2017 08:46 Pierre Richmond MD Oct 07, 2017 16:24
--- NOTE | 2017-10-07 17:47 | RADRPT ---
EXAM DATE/TIME: 10/07/2017 16:59 [facility] COMPARISON: No previous studies available for comparison. INDICATIONS : Pain in left knee, after bumping in on bed. MEDICAL HISTORY : None. SURGICAL HISTORY : None. ENCOUNTER: Initial ACUITY: 1 day PAIN SCORE: 3/10 LOCATION: Left knee FINDINGS: There is mild arthritic change with medial compartment joint space narrowing and tiny osteophytes in a tricompartmental distribution. No evidence of fracture or joint effusion. Mineralization is normal. There are vascular calcifications present and soft tissue varicosities. CONCLUSION: No acute bony process Antonio Greenberg MD on October 07, 2017 at 17:44 Board Certified Radiologist. This report was verified electronically.
[2017-10-07] MEDS ORDERED: ENALAPRILAT 1.25 MG/ML VIAL IV PUSH PRN (22:15)
[2017-10-07] MEDS ORDERED: HALOPERIDOL LACTATE 5 MG/ML AMP IM ONE (23:00)
[2017-10-08] MEDS: NITROGLYCERIN 2% OINT 1 GM PACKET TOPICAL PRN ×2 (02:10→09:00)
[2017-10-08] MEDS: SODIUM CHLOR 0.9% 1000 ML INJ 1,000 ML IV SCH ×2 (03:40→14:39)
[2017-10-08 05:08] VITALS: BP 179/89; PULSE 92
[2017-10-08 07:08] VITALS: BP 178/95; PULSE 97; RESP 18; TEMP 97.8; O2SAT 96
[2017-10-08] MEDS: SODIUM CHLORIDE 0.9% FLUSH 10 ML FLUSH IV FLUSH SCH ×2 (07:27→20:47)
--- NOTE | 2017-10-08 08:26 | HHI.PR ---
Review/Management Diagnosis/Plan: (1) Left leg pain ICD Codes: M79.605 - Pain in left leg Plan: chronic left leg polio chronic left knee, posterior pain x years. states she has been to [place] ortho in many different states about this problem xray arthritis no back pain. no radicular symptoms recs ok to d/c home f/u with ortho can f/u with us in 2-3 weeks (2) Spondylosis of lumbar spine ICD Codes: M47.816 - Spondylosis without myelopathy or radiculopathy, lumbar region Plan: Neurosurgery following CT of the lumbar spine with noted moderate central canal stenosis L4-L5 and mild to moderate central canal stenosis L3-L4 Follow-up on imaging, follow exam, no hyperreflexia noted at this time. 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 Has had intermittent exacerbations left lower extremity pain and weakness throughout her life. PT evaluation and treat Subjective Subjective Comments No acute events reported No headache No chest pain No dyspnea Active Medications Current Medications Medications (Trade) Dose Ordered Sig/Kandi Route Start Time Stop Time Status Last Admin (NS Flush) 2 ml UNSCH PRN IV FLUSH 10/06/17 21:15 (NS Flush) 2 ml BID IV FLUSH 10/07/17 09:00 10/08/17 07:27 (Tylenol) 650 mg Q4H PRN PO 10/06/17 21:15 (Compazine Supp) 25 mg Q12H PRN RECTAL 10/06/17 21:15 (Heparin Inj) 5,000 units Q8H SQ 10/06/17 23:59 Future Hold (Narcan Inj) 0.4 mg UNSCH PRN IV PUSH 10/06/17 21:15 (D50w (Vial) Inj) 50 ml UNSCH PRN IV PUSH 10/07/17 01:00 (Glucagon Inj) 1 mg UNSCH PRN OTHER 10/07/17 01:00 (NovoLOG SUPPLEMENTAL SCALE) 1 ACHS SLIDING SCALE SQ 10/07/17 08:00 Sodium Chloride 1,000 ml @ 75 mls/hr [id number] IV 10/07/17 01:00 10/07/17 14:23 (Vasotec Inj) 2.5 mg Q6H PRN IV PUSH 10/07/17 22:15 10/07/17 22:30 (Nitroglycerin 2% Oint) 1 inch Q6H PRN TOPICAL 10/08/17 02:00 10/08/17 02:10 Allergies Allergies Coded Allergies No Known Allergies (Unverified10/06/17) Review of Systems Constitutional: Negative except HPI Eye: Negative Except HPI ENMT: Negative except HPI Respiratory: Negative except HPI Cardiovascular: Negative except HPI Gastrointestinal: Negative except HPI Gianni/Lymph: Negative except HPI Musculoskeletal: Negative except HPI Neurologic: Negative except HPI Psychiatric: Negative except HPI All other ROS: ROS reviewed as documented in chart Exam I&O / VS Vital Signs Date Time Temp Pulse Resp B/P (MAP) Pulse Ox O2 Delivery O2 Flow Rate FiO2 10/08/17 07:08 97.8 97 18 178/95 (122) 96 10/08/17 05:08 92 179/89 (119) 10/07/17 23:30 98.6 90 18 192/95 (127) 97 10/07/17 21:15 98.0 75 18 193/84 (120) 96 10/07/17 16:08 88 18 192/84 (120) 98 10/07/17 15:51 98.7 73 16 180/77 (111) 96 General: No acute distress Eye: PERRL, EOMI Respiratory: Lungs CTA, Non-labored respirations, Symmetrical expansion Cardiology: Normal rate, Normal peripheral perfusion Musculoskeletal: Tenderness (Left knee) Neurologic: Alert, CN II-XII intact, Normal DTR's Psychiatric: Cooperative, Appropriate mood & affect Exam Comments a and ox 3. follows, no aphasia, eomi, vff, face sym, faustin to gravity, up walking in room, ready to leave Pierre Richmond MD Oct 08, 2017 08:26
[2017-10-08] MEDS: INSULIN ASPART SUPPLEMENTAL SCALE SQ SCH ×4 (08:31→20:47)
--- NOTE | 2017-10-08 09:09 | MB ---
cc: Elian Washington MD DATE: 10/08/2017 CHIEF COMPLAINT: Left knee pain. HISTORY OF PRESENT ILLNESS: Ms. Powell is an 82-year-old female who has a history of diabetes, high cholesterol and breast cancer. She presented to the emergency room with left leg weakness. She also complains of left knee pain. She states that she has had intermittent left knee pain for several years. She is currently at baseline. Her pain is worse in the morning and is improved throughout the day. When she first gets up, she has more pain. As she starts to walk, the pain improves. 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 She denies any recent injuries. PAST MEDICAL HISTORY: Diabetes, high cholesterol, history of breast cancer. PAST SURGICAL HISTORY: Hysterectomy, appendectomy, lumpectomy. ALLERGIES: NO KNOWN DRUG ALLERGIES. MEDICATIONS: Please see EMR for a complete list of inpatient medications. This was reviewed. SOCIAL HISTORY: The patient denies alcohol, tobacco or drug use. FAMILY HISTORY: Noncontributory. REVIEW OF SYSTEMS: The patient denies current headache, visual changes, neck pain, chest pain, abdominal pain, nausea, vomiting, recent weight loss, fevers or chills or numbness or tingling of extremities. She complains of mild left knee pain. She has minimal pain at rest. LABORATORY DATA: The patient has a white blood cell count of 5.8 and hematocrit of 40.7, platelet counts are 207. X-RAYS: X-rays of the left knee were reviewed. X-rays revealed no evidence of acute fracture. She has mild degenerative changes of the left knee. No fractures or dislocations are seen. PHYSICAL EXAM: GENERAL: The patient is a pleasant 82-year-old female. She is awake. She is able to stand and bear weight without pain. She appears well-developed and well-nourished. VITAL SIGNS: Temperature 97.8, pulse 97, respirations 18, blood pressure 178/95, O2 saturation 96% on room air. HEENT: Head: The patient is normocephalic. Pupils are equal. NECK: Soft, nontender. The trachea is midline. ABDOMEN: Soft, nontender, nondistended. EXTREMITIES: Examination of the bilateral upper extremities reveals no pain with shoulder, elbow and wrist motion. She has good cap refill in all fingers. Skin is intact to both hands. Sensation is intact in all fingers. Examination of left leg reveals no pain with hip or ankle motion. Skin is intact. Sensation is intact to the left foot. Examination of her knee reveals no significant swelling noted. She has no pain with passive range of motion of her knee. Knee range of motion is from 0-130 degrees. She does have mild joint line tenderness. She also has mild tenderness along the proximal gastroc muscle along the posterior knee. Her knee is stable to varus and valgus stresses. IMPRESSION: 1. Diabetes. 2. Mild left knee osteoarthritis. 3. Chronic left knee pain for several years. PLAN: Treatment options were discussed with the patient. At this point, she states that the pain is tolerable. Her pain is not worse than it normally is. I would recommend continuation of conservative treatment. She may take anti-inflammatories as tolerated. She may followup with orthopedics as an outpatient as tolerated. If her pain gets worse, she could be a candidate for a corticosteroid injection of her knee. The patient is in agreement with this plan. All questions were answered. A mid-level provider in my office, nurse practitioner or PA, may see this patient on a follow-up basis and continue to implement the objective of this plan including: Starting or adjusting medications, injections of muscle, tendon, bursa or joints, cast application, orthotic or brace application, physical therapy, further radiographic studies including x-ray, MRI, CT, ultrasounds or bone scan, vascular studies, neurologic studies, or other specialist consultations, and proceeding with surgical management as appropriate. MD REYNALDO Duncan/LILY , 08:36 AM , 09:08 AM
[2017-10-08 11:58] VITALS: BP 194/87; PULSE 92; RESP 18; TEMP 97.9; O2SAT 94
[2017-10-08 15:21] VITALS: BP 166/77; PULSE 84; RESP 20; TEMP 98.7; O2SAT 97
--- NOTE | 2017-10-08 17:45 | HHI.PR ---
Subjective Remarks Patient seen this morning around 9 AM, and subsequently. Says she is feeling well. Would like to go home. She is unable to tell me her location, year, month. I have discussed with her that physical therapy recommends going to rehab. She refused MRI yesterday. She has a live-in boyfriend at bedside who is oriented 3 he says she is mentally at baseline but he is not sure whether she should be going home at this time or not. Call placed to son. Left message to call back. Objective Vital Signs Date Time Temp Pulse Resp B/P (MAP) Pulse Ox O2 Delivery O2 Flow Rate FiO2 10/08/17 15:21 98.7 84 20 166/77 (106) 97 10/08/17 11:58 97.9 92 18 194/87 (122) 94 10/08/17 07:08 97.8 97 18 178/95 (122) 96 10/08/17 05:08 92 179/89 (119) 10/07/17 23:30 98.6 90 18 192/95 (127) 97 10/07/17 21:15 98.0 75 18 193/84 (120) 96 I/O 10/07/17 10/07/17 10/07/17 10/08/17 10/08/17 10/08/17 07:00 15:00 23:00 07:00 15:00 23:00 Intake Total 800 ml Output Total 500 ml 1000 ml Balance -500 ml -200 ml Intake Oral 800 ml Output Urine Total 500 ml 1000 ml Result Diagram: 10/07/17 0556 10/07/17 0554 Objective Remarks GENERAL: Patient is very pleasant and carries on conversation, however when asked does not know where she is, the month or year. SKIN: Warm and dry. HEAD: Normocephalic. EYES: No scleral icterus. No injection or drainage. NECK: Supple, trachea midline. No JVD. CARDIOVASCULAR: Regular rate and rhythm without murmurs, gallops, or rubs. RESPIRATORY: Breath sounds equal bilaterally. No accessory muscle use. GASTROINTESTINAL: Abdomen soft, non-tender, nondistended. MUSCULOSKELETAL: No cyanosis, or edema. Patient tries to walk without walker, is unsteady on feet. BACK: Nontender without obvious deformity. No CVA tenderness. A/P Assessment and Plan Assessment/plan: // Left lower extremity pain/weakness Neurology consulted, appreciate recommendations Ultrasound negative for DVT Lumbar spine CT shows moderate central canal stenosis at L4/5 secondary to disc bulge and degenerative change, mild to moderate stenosis at L3/4 MRI pending = Patient refused MRI. Patient has been cleared by neurology for discharge. PT recommends rehab. //Diabetes mellitus Patient cannot remember her home regimen Sliding scale insulin Monitor blood glucose //Hyperlipidemia Continue home medications once determined Discharge Planning Patient is unable to make her own medical decisions at this time due to disorientation. This appears to be chronic dementia. I discussed with her son over the phone who will discuss further with patient's boyfriend and call me back. Jack Omer MD Oct 08, 2017 17:45
[2017-10-08] MEDS ORDERED: LISINOPRIL 5 MG TAB PO ONE (18:00)
[2017-10-08] MEDS ORDERED: LISI-519 PO (18:00)
[2017-10-08] MEDS ORDERED: ISOSORBIDE MONONITRATE 30 MG CR TAB (IMDUR) PO ONE (18:00)
[2017-10-08 19:46] VITALS: BP 146/68; PULSE 98; RESP 18; TEMP 97.7; O2SAT 95
--- NOTE | 2017-10-08 19:53 | HHI.FF ---
Face to Face Verification Diagnosis: (1) Dementia (2) Spondylosis of lumbar spine (3) Left leg pain (4) Post-polio syndrome Physical Therapy Order: Evaluate and Treat Home Health Nursing Order: Nursing assessment with vital signs Instructions: home health nurse for medication management Heart Doctor Order: To Evaluate: Living conditions/environment Order: To Provide: Long range planning I have seen patient Danay Powell on 10/08/17. My clinical findings support the need for the requested home health care services because: Med compliance is questionable Need for psychosocial assistance I certify that my clinical findings support that this patient is homebound because: Unsafe to leave home unassisted Jack Omer MD Oct 08, 2017 19:53
[2017-10-08] MEDS ORDERED: ISOS30TA3 PO (19:54)
[2017-10-08] MEDS ORDERED: WALKER WHEELS/F1 MIS (19:58)
--- NOTE | 2017-10-08 19:58 | HHI.DS ---
Discharge Summary Admission Date Oct 06, 2017 at 20:32 Discharge Date: Oct 08, 2017 Admitting Diagnosis LLE Weakness/Numbness; Inability to Ambulate Procedures none Brief History - From Admission 82-year-old female with past medical history significant for diabetes mellitus, hyperlipidemia and a history of breast cancer presents to the emergency department for evaluation of left lower extremity pain and weakness. The patient reports that the back of her knee is exquisitely painful. She states that it began this morning when she was unable to bear weight. She reports the weakness has been increasing but she is also growing "more tired this evening." The patient is an extremely poor historian. She denies any chest pain or shortness of breath. No nausea/vomiting/diarrhea. No abdominal pain. No dysuria. No loss of bowel/bladder. CBC/BMP: 10/07/17 0556 10/07/17 0554 Significant Findings Laboratory Tests Test 10/06/17 15:44 10/07/17 05:54 10/07/17 05:56 Random Glucose 119 MG/DL (74-106) 116 MG/DL (74-106) Total Protein 8.3 GM/DL (6.4-8.2) Estimat Glomerular Filtration Rate 56 ML/MIN (>89) 67 ML/MIN (>89) Calcium Level 8.3 MG/DL (8.5-10.1) Monocytes (%) (Auto) 9.7 % (0.0-8.0) Imaging Last Impressions Knee X-Ray 10/07/17 0000 Signed Impressions: Service Date/Time: Saturday, October 07, 2017 16:59 - CONCLUSION: No acute bony process Antonio Greenberg MD Lumbar Spine CT 10/06/17 0000 Signed Impressions: Service Date/Time: Friday, October 06, 2017 16:39 - CONCLUSION: 1. Moderate central canal stenosis and lateral recess stenosis at L4-5 secondary to disc bulge and degenerative change involving the facets. 2. Mild to moderate central canal stenosis at L3-4 secondary to disc bulge and degenerative change involving the facets. 3. Mild disc bulges at the L1-2, L2-3 and L5-S1 levels. 4. Mild grade 1 anterior spondylolisthesis of L4 on L5 several millimeters. Simon Dinero MD Lower Extremity Ultrasound 10/06/17 0000 Signed Impressions: Service Date/Time: Friday, October 06, 2017 18:44 - CONCLUSION: 1. Negative for deep venous thrombosis. Reno Burrows MD Head CT 10/06/17 0000 Signed Impressions: Service Date/Time: Friday, October 06, 2017 16:36 - CONCLUSION: Moderate atrophic change with no evidence of hemorrhage or infarction. Simon Dinero MD Hospital Course Assessment/plan: // Left lower extremity pain/weakness Neurology consulted, appreciate recommendations Ultrasound negative for DVT Lumbar spine CT shows moderate central canal stenosis at L4/5 secondary to disc bulge and degenerative change, mild to moderate stenosis at L3/4 MRI pending = Patient refused MRI. Patient has been cleared by neurology for discharge. PT recommends rehab. //Diabetes mellitus Patient cannot remember her home regimen Sliding scale insulin Monitor blood glucose //Hyperlipidemia Continue home medications once determined Discharge Planning Patient is unable to make her own medical decisions at this time due to disorientation. This appears to be chronic dementia. I discussed with her son over the phone who will discuss further with patient's boyfriend and call me back. Jack Omer MD Oct 08, 2017 17:45 Addendum: Jack Omer MD on 10/08/17 @ 19:56 Discussed with son Tian over the phone. He says he has talked to his mother and she is alert and oriented 3 for him. He has discussed also with patient's boyfriend, who has agreed to take patient home. Will discharge home with home health. Pt Condition on Discharge: Good Discharge Disposition: Disch w/ Home Health Serv Discharge Time: > 30 minutes Discharge Instructions DIET: Follow Instructions for: Heart Healthy Diet Activities you can perform: Regular-No Restrictions Other Activity Instructions: USE WALKER WHILE WALKING. Follow up Referrals: PCP Follow-up - 1 Week with Jonah Regalado MD New Medications: Lisinopril (Lisinopril) 5 Mg Tab 5 MG PO DAILY for Blood Pressure Management, #30 TAB 0 Refills Isosorbide Mononitrate ER (Isosorbide Mononitrate ER) 30 Mg Jan 30 MG PO DAILY@07 for Blood Pressure Management for 30 Days, TAB Jack Omer MD Oct 08, 2017 19:58
[2017-10-09 02:18] VITALS: BP 121/59; PULSE 83; RESP 15; TEMP 97.6; O2SAT 98
[2017-10-09 06:20] VITALS: BP 138/82; PULSE 94; RESP 18; TEMP 97.5; O2SAT 95
[2017-10-09] MEDS ORDERED: ISOSORBIDE MONONITRATE 30 MG CR TAB (IMDUR) PO SCH (07:00)
[2017-10-09] MEDS: SODIUM CHLORIDE 0.9% FLUSH 10 ML FLUSH IV FLUSH SCH (07:29)
[2017-10-09 08:21] VITALS: BP 107/86; PULSE 85; RESP 18; TEMP 96; O2SAT 97
[2017-10-09] MEDS: INSULIN ASPART SUPPLEMENTAL SCALE SQ SCH ×2 (09:20→12:00)
[2017-10-09 13:18] VITALS: BP 142/67; PULSE 80; RESP 18; TEMP 97.7; O2SAT 96
== END 2017-10-09 13:40 | disposition home or self-care (01) ==
LOC: NED 15:02 → MERGE 20:32 → NEDA 20:32 → NEPFCDU 23:13
PROVIDERS: ADMIT Internal Medicine; ATTEND Internal Medicine
DX: M79.605 Pain in left leg (principal); R53.1 Weakness; I10 Essential (primary) hypertension; E11.9 Type 2 diabetes mellitus without complications; E78.00 Pure hypercholesterolemia, unspecified; G14 Postpolio syndrome; F41.9 Anxiety disorder, unspecified; M47.816 Spondylosis without myelopathy or radiculopathy, lumbar region; M48.061 Spinal stenosis, lumbar region without neurogenic claudication; M43.16 Spondylolisthesis, lumbar region; M17.12 Unilateral primary osteoarthritis, left knee; Z85.3 Personal history of malignant neoplasm of breast
CPT/HCPCS: 70450; 72131; 73564; 80048; 80053; 82948; 85025; 93970; 96361; 96374; 97163; 99285; G0378; G8987; G8988; J1630; J1815; J7030; 85610; 85730